=== PATIENT | male | born 1990 | race Caucasian/White ===

== ENCOUNTER 2021-10-26 16:54 | Emergency (ER) | payer SELFPAY ==
[~2021-10-26] VITALS: Ht 185.4 cm; Wt 79.4 kg
--- OUTSIDE RECORDS SUMMARY | 2021-10-26 16:56 | XMS ---
PreManage Notification: JOHNATHON JIMENEZ Security [employer] D[employer] Machine Tender Events No recent Security Events currently on file CRITERIA MET - PDMP CARE PROVIDERS Jennifer Espino Nurse Practitioner: Family Current FOOD AND BEVERAGE MANAGER PHONE: Unknown Martina has no Care Guidelines for this patient. Delores VISIT COUNT (12 MO.) 1 BRENDA Walters TOTAL 1 NOTE: Visits indicate total known visits. ED/UCC VISIT TRACKING (12 MO.) 10/26/2021 16:[address] [facility] TYPE: Emergency COMPLAINT: - ABDOMINAL PAIN INPATIENT VISIT TRACKING (12 MO.) No inpatient visits to display in this time frame [email or web address]
== END 2021-10-26 20:57 | disposition home or self-care (01) ==
LOC: ED 16:54
DX: R10.10 Upper abdominal pain, unspecified (principal); G89.29 Other chronic pain; R27.8 Other lack of coordination; Z91.013 Allergy to seafood
CPT/HCPCS: 36415; 70450; 76705; 80053; 81001; 83690; 85025; 99284-25